=== PATIENT | female | born 1975 | race Caucasian/White ===

== ENCOUNTER 2017-08-21 12:36 | Emergency (ER) | payer OTHER ==
[~2017-08-21] VITALS: Ht 162.6 cm; Wt 77.1 kg
[~2017-08-21 12:36] MED LIST: HYDACE5 PO; IBUP800 PO; META800 PO; PREG25 PO; PROACE100 PO
[2017-08-21] MEDS ORDERED: Prozac40 MG PO (12:57)
== END 2017-08-21 14:48 | disposition home or self-care (01) ==
LOC: ER 12:36
DX: T26.01XA Burn of right eyelid and periocular area, initial encounter (principal); T22.112A Burn of first degree of left forearm, initial encounter; Z88.0 Allergy status to penicillin; Z79.899 Other long term (current) drug therapy; W40.8XXA Explosion of other specified explosive materials, initial encounter
CPT/HCPCS: 99284; J2405; J7030

== ENCOUNTER → 2019-03-15 | Outpatient (CLI) | payer OTHER ==
[~2019-03-15] MED LIST changes: +Prozac40 MG PO
== END | disposition home or self-care (01) ==
LOC: LAB 19:29 → LAB SHORT 19:29
PROVIDERS: Nurse Practitioner
DX: Z01.419 Encounter for gynecological examination (general) (routine) without abnormal findings (principal)
CPT/HCPCS: G0145

== ENCOUNTER → 2020-01-28 | Outpatient (CLI) | payer OTHER | LOC: LAB EV 13:31 → LAB SHORT 13:31 | DX: L03.213 Periorbital cellulitis (principal) | CPT/HCPCS: 87070; 87077; 87147; 87186; 87205 ==

== ENCOUNTER 2023-03-22 12:04 | Emergency (ER) | payer OTHER ==
[~2023-03-22] VITALS: Ht 160 cm; Wt 78.0 kg
[2023-03-22 13:18] LABS: BASOPHILS ABSOLUTE AUTO 0.03 K/mm3 (0.00-0.23); BASOPHILS PERCENT AUTO 0 % (0-2); EOSINOPHILS ABSOLUTE AUTO 0.02 K/mm3 (0.00-0.68); EOSINOPHILS PERCENT AUTO 0 % (0-6); Hematocrit 37.3 % (33.0-51.0); Hemoglobin 12.5 g/dL (11.5-16.0); IMMATURE GRAN ABSOLUTE AUTO 0.02 K/mm3 (0.00-0.10); IMMATURE GRAN PERCENT AUTO 0 % (0-1); LYMPHOCYTES ABSOLUTE AUTO 1.23 K/mm3 (0.84-5.20); LYMPHOCYTES PERCENT AUTO 18 % (21-46); MONOCYTES ABSOLUTE AUTO 0.67 K/mm3 (0.16-1.47); MONOCYTES PERCENT AUTO 10 % (4-13); Mean Corpuscular HGB 29.1 pg (26.0-34.0); Mean Corpuscular HGB Conc 33.5 g/dL (31.5-36.5); Mean Corpuscular Volume 87 fL (80-100); Mean Platelet Volume 10.6 fL (9.1-12.4); NEUTROPHILS ABSOLUTE AUTO 4.99 K/mm3 (1.96-9.15); NEUTROPHILS PERCENT AUTO 72 % (41-73); Platelet Count 216 K/mm3 (150-400); RDW Coefficient Variation 13.1 % (11.7-14.2); RDW Standard Deviation 41.1 fL (35.1-46.3); White Blood Cell Count 6.96 K/mm3 (4.00-11.30)
[2023-03-22 13:34] LABS: Alanine Aminotransfer (ALT/SGP 15 U/L (12-78); Albumin, Blood 3.3 g/dL (3.4-5.0); Albumin/Globulin Ratio 0.9 (0.8-1.8); Alk Phos 52 U/L (50-136); Anion Gap 4 mmol/L (6-16); Aspartate Aminotrans (AST/SGOT 16 U/L (12-37); Bilirubin, Total 0.4 mg/dL (0.1-1.0); Blood Urea Nitrogen 9 mg/dL (8-24); Bun/Creatinine Ratio 13.1 (12.0-20.0); CO2, Blood 26 mmol/L (21-32); Calcium, Blood 8.5 mg/dL (8.5-10.1); Chloride, Blood 109 mmol/L (98-108); Creatinine, Blood 0.69 mg/dL (0.40-1.00); Ethanol (Alcohol), Blood, Med <3 mg/dL; Globulin, Blood 3.5 g/dL (2.2-4.0); Glomerular Filtration Rate 108 (60-); Glucose, Blood 90 mg/dL (70-99); Sodium, Blood 139 mmol/L (136-145); Total Protein, Blood 6.8 g/dL (6.4-8.2)
[2023-03-22 14:10] LABS: Source, Urine Clean Catch
[2023-03-22] MEDS ORDERED: Robaxin750 MG PO (14:21)
[2023-03-22 14:23] LABS: Appearance, Urine Clear (Clear); Bilirubin, Urine Neg (Neg); Blood, Urine Neg (Neg); Color, Urine Yellow (P-Yellow); Glucose Qualitative, Urine Neg (Neg); Ketones, Urine 1+ (Neg); Leukocyte Esterase, Urine Neg (Neg); Nitrite, Urine Neg (Neg); Protein, Urine Neg (Neg); Specific Gravity, Urine 1.015 (1.003-1.022); Urobilinogen, Urine NORM (Normal)
[2023-03-22 14:33] LABS: International Normalized Ratio 1.02; Prothrombin Time Results 10.7 Sec (9.7-11.5)
[2023-03-22 14:39] LABS: U Amphetamine Screen Not Detected; U Barbituate Screen Not Detected; U Benzodiazapine Screen Not Detected; U Buprenorphine Screen Not Detected; U Cannabinoids Screen Not Detected; U Cocaine Screen Not Detected; U Methadone Screen Not Detected; U Methamphetamine Screen Not Detected; U Opiates Screen Not Detected; U Oxycodone Screen Not Detected; U Phencyclidine Screen Not Detected; U Propoxyphene Screen Not Detected
[2023-03-22 15:00] VITALS: BP 119/75
== END 2023-03-22 15:20 | disposition home or self-care (01) ==
LOC: ER 12:04
PROVIDERS: Student in an Organized Health Care Education/Training Program
DX: S09.90XA Unspecified injury of head, initial encounter (principal); S16.1XXA Strain of muscle, fascia and tendon at neck level, initial encounter; S20.212A Contusion of left front wall of thorax, initial encounter; S60.211A Contusion of right wrist, initial encounter; S80.02XA Contusion of left knee, initial encounter; S80.01XA Contusion of right knee, initial encounter; V43.52XA Car driver injured in collision with other type car in traffic accident, initial encounter; Z88.0 Allergy status to penicillin; Z79.899 Other long term (current) drug therapy
CPT/HCPCS: 29125; 70450; 71260; 72125; 73110; 73562-LT; 73562-RT; 74177; 80053; 81003; 83690; 85025; 85610; 96374-59; 96375-59; 99285-25; A9270; G0480; J1885; J2765; J3010; Q9967

== ENCOUNTER 2024-08-01 06:21 | Day surgery (SDC) | payer OTHER ==
[2024-08-01] VITALS (12 sets, daily range): BP systolic 106–128; BP diastolic 64–85
[~2024-08-01] VITALS: Ht 162.6 cm; Wt 82.4 kg
[~2024-08-01 06:21] MED LIST changes: +CYCL10; +CeFAZolin Sodium 2,000 MG in NS 100 ML IV SCH; +IMITREX50 M1 PO; +Lactated Ringer's 1,000 ML IV SCH; +MELO7.5 PO; +Robaxin750 MG PO; +TOPI25 PO; +Tranexamic Acid 1,000 MG in NS 100 ML IV SCH
[2024-08-01] MEDS ORDERED: Midazolam HCl 1MG / ML 2ML Vial ONE (06:58)
[2024-08-01] MEDS ORDERED: EpiNEPhrine 1 MG/1 ML 1ML Vial ONE ×2 (07:09→09:23)
[2024-08-01] MEDS ORDERED: Lidocaine HCl 2% 20 ML MDV ONE (07:14)
[2024-08-01] MEDS ORDERED: Bupivacaine 0.5% HCl 5 MG/ML 30MLVIAL ONE (07:14)
[2024-08-01] MEDS ORDERED: propofoL 20 ML IV ONE (07:36)
[2024-08-01] MEDS ORDERED: FentaNYL Citrate 50 MCG/ML 2 ML Injection ONE (07:37)
[2024-08-01] MEDS ORDERED: Ondansetron HCl 2 MG / ML 2ML Vial ONE (08:04)
[2024-08-01] MEDS ORDERED: Dexamethasone Sod Phos 10 MG/ML 1ML VIAL ONE (08:04)
[2024-08-01] MEDS ORDERED: Sugammadex Sodium 200 MG/2ML SDV (100 MG/ML) ONE (08:06)
[2024-08-01] MEDS ORDERED: Ketorolac Tromethamine 30mg Vial ONE (08:07)
[2024-08-01] MEDS ORDERED: Lidocaine 1%-Epineph 1:100000 20 ML MDV XX ONE (08:50)
[2024-08-01] MEDS ORDERED: Phenylephrine HCl 100 MCG/ML-NS 10MLSYR (1MG/10ML) ONE (09:04)
[2024-08-01] MEDS ORDERED: OxyCODONE HCL 5 MG TAB PO PRN (09:55)
--- NOTE | 2024-08-01 11:58 | NUR ---
DISCHARGE NOTE PT A&OX4, BREATHING RA, VSS, TOLERATING PO INTAKE. AT BEDSIDE. ICE PACK TO R SHOULDER AND IMMOBILIZER IN PLACE. FINGERS TO OPERATIVE LIMB ARE PWD C BRISK CAP REFILL. PT HAS NO FEELING IN OPERATIVE ARM, NO POST OP PAIN MEDICATION GIVEN, PT ABLE TO SLIGHTLY MOVE FINGERS AT DISCHARGE. Patient up to Ambulate independently. Gait steady. Discharge instructions reviewed with patient. Patient verbalizes understanding. Copy given to patient to take home. Dressing to procedure site clean, dry, intact with no visible drainage, swelling, erythema or bruising noted. Discharged via wheelchair to private car for ride home.
== END 2024-08-01 11:55 | disposition home or self-care (01) ==
LOC: ORSCMMR 06:21 → ORD 09:30 → ORSCMMR 09:45 → ORD 09:45 → ORSCMMR 11:55
PROVIDERS: Orthopaedic Surgery Sports Medicine
PROC: 0LS34ZZ Reposition Right Upper Arm Tendon, Percutaneous Endoscopic Approach (ICD-10-PCS; principal; 2024-08-01 07:30)
PROC: 0RNJ4ZZ Release Right Shoulder Joint, Percutaneous Endoscopic Approach (ICD-10-PCS; principal; 2024-08-01 07:30)
PROC: 0LM14ZZ Reattachment of Right Shoulder Tendon, Percutaneous Endoscopic Approach (ICD-10-PCS; principal; 2024-08-01 07:30)
DX: M75.111 Incomplete rotator cuff tear or rupture of right shoulder, not specified as traumatic (principal); M75.41 Impingement syndrome of right shoulder; V43.52XA Car driver injured in collision with other type car in traffic accident, initial encounter; Z79.899 Other long term (current) drug therapy
CPT/HCPCS: C1713; J0171; J0690; J1100; J1885; J2250; J2371; J2405; J2704; J3010; J7120